=== PATIENT | female | born 1960 | race Caucasian/White ===

== ENCOUNTER → 2023-11-01 11:32 | Outpatient (REF) | payer OTHER, SELFPAY | LOC: RAD 11:32 | PROVIDERS: ATTENDING PHYSICIAN Nurse Practitioner | DX: J40 Bronchitis, not specified as acute or chronic (principal) | CPT/HCPCS: 71046 ==

== ENCOUNTER → 2024-01-05 12:53 | Outpatient (REF) | payer OTHER, SELFPAY | LOC: RCS 12:53 | PROVIDERS: ATTENDING PHYSICIAN Nurse Practitioner; REFERRING PHYSICIAN Internal Medicine Endocrinology, Diabetes & Metabolism | DX: R06.09 Other forms of dyspnea (principal); Z82.49 Family history of ischemic heart disease and other diseases of the circulatory system | CPT/HCPCS: 93017; 93306 ==

== ENCOUNTER → 2024-05-31 16:12 | Outpatient (REF) | payer OTHER, SELFPAY ==
[2024-05-31 12:11] LABS: % Eosinophils 7.6 % (0-6); % Immature Granulocytes 0.5 % (0-0.5); % Lymphocytes 31.9 % (20.5-51.1); % Monocytes 5.9 % (1.7-9.3); % Neutrophils 53.1 % (42.2-75.2); Absolute Basophils 0.1 10^3/uL (0-0.2); Absolute Eosinophils 0.5 10^3/uL (0-0.7); Absolute Lymphocytes 1.9 10^3/uL (1.2-3.4); Absolute Monocytes 0.4 10^3/uL (0.1-0.6); Absolute Neutrophils 3.2 10^3/uL (1.4-6.5); Hematocrit 41.5 % (37.0-47.0); Hemoglobin 13.5 g/dL (12.0-16.0); Mean Corp Hgb Conc. 32.5 g/dL (33.0-37.0); Mean Corpuscular Hgb 28.6 pg (27.0-31.0); Mean Corpuscular Volume 87.9 fL (81.0-99.0); Mean Platelet Volume 10.8 fL (7.4-10.4); Nucleated Red Blood Cells % 0 %; Platelet Count 245 10^3/uL (130-400); Red Blood Cell Count 4.72 10^6/uL (4.20-5.40); Red Cell Dist. Width 13.5 % (11.5-14.5); White Blood Cell Count 6.1 10^3/uL (4.8-10.8)
== END ==
LOC: OIDL 16:12
PROVIDERS: ATTENDING PHYSICIAN Internal Medicine Hematology & Oncology
DX: D50.9 Iron deficiency anemia, unspecified (principal)
CPT/HCPCS: 85025

== ENCOUNTER → 2024-10-01 11:05 | Outpatient (REF) | payer MEDICARE, OTHER, SELFPAY ==
[2024-10-01 12:18] LABS: % Basophils 0.7 % (0-2); % Eosinophils 8.5 % (0-6); % Immature Granulocytes 0.3 % (0-0.5); % Lymphocytes 20.3 % (20.5-51.1); % Monocytes 4.4 % (1.7-9.3); % Neutrophils 65.8 % (42.2-75.2); Absolute Basophils 0.1 10^3/uL (0-0.2); Absolute Eosinophils 0.7 10^3/uL (0-0.7); Absolute Lymphocytes 1.6 10^3/uL (1.2-3.4); Absolute Monocytes 0.3 10^3/uL (0.1-0.6); Absolute Neutrophils 5.1 10^3/uL (1.4-6.5); Hematocrit 41.3 % (37.0-47.0); Hemoglobin 13.2 g/dL (12.0-16.0); Mean Corpuscular Hgb 28.1 pg (27.0-31.0); Mean Corpuscular Volume 87.9 fL (81.0-99.0); Mean Platelet Volume 10.4 fL (7.4-10.4); Nucleated Red Blood Cells % 0 %; Platelet Count 232 10^3/uL (130-400); Red Cell Dist. Width 12.7 % (11.5-14.5); White Blood Cell Count 7.7 10^3/uL (4.8-10.8)
[2024-10-01 13:05] LABS: ALT (SGPT) 17 U/L (0-35); AST (SGOT) 24 U/L (14-36); Alkaline Phosphatase 114 U/L (38-126); Blood Urea Nitrogen 15 mg/dl (7-17); Calcium 9.2 mg/dl (8.4-10.2); Carbon Dioxide 26 mmol/L (22-30); Chloride 101 mmol/L (98-107); Glucose 179 mg/dl (70-99); Potassium 4.4 mmol/L (3.5-5.1); Sodium 136 mmol/L (135-145); Total Bilirubin 0.8 mg/dl (0.2-1.3); Total Protein 6.7 g/dl (6.3-8.2); eGFR > 60.00
[2024-10-01 13:32] LABS: TSH 5.16 uIU/ml (0.47-4.68)
[2024-10-04 00:32] LABS: Thyroglobulin Antibodies 4.9 IU/mL (0.0-4.0); Thyroid Peroxidase Ab (TPO) 2.8 IU/mL (0.0-9.0)
[2024-10-04 08:51] LABS: ANA, IgG Reflex to HEp-2 Detected (None Detected)
== END ==
LOC: REG 11:05
PROVIDERS: ATTENDING PHYSICIAN Pediatrics; FAMILY PHYSICIAN Hospitalist
DX: L50.1 Idiopathic urticaria (principal); R53.83 Other fatigue
CPT/HCPCS: 36415; 80053; 82784; 83516; 83520; 83521; 84155; 84165; 84443; 85025; 86038; 86225; 86235; 86334; 86376; 86800

== ENCOUNTER 2024-11-08 11:21 | Emergency (ER) | payer MEDICARE, OTHER, SELFPAY ==
[2024-11-08 11:22] VITALS: BP 161/97
--- NOTE | 2024-11-08 12:06 | ED.GENMED ---
History of Present Illness
General
Chief Complaint: Skin Problem
Source: patient
Exam Limitations: none
Time Seen by Provider: 11/08/24 11:30
History of Present Illness
History of Present Illness:
64yoF with a history of type 1 diabetes, pernicious anemia, and hypothyroidism presenting for evaluation of a rash. Symptoms initially began in April 2024 with a rash to her right lower leg. Her rash is now generalized throughout her body. The
rash is red and itchy and some areas are painful. She has seen multiple specialists including her PCP, dermatology, rheumatology, and an contact acid plant operator. She has tried multiple steroid creams as well as CeraVe a which seem to make the rash worse.
Dermatology biopsied one of her scabs and she was told that the biopsy showed 'itchy skin.' Patient feels that her symptoms are gradually getting worse and she is not sure what to do at this point. Her skin feels tight due to the rash. She denies
any fevers or chills. No involvement of mouth or genital region.
Past History
Past History
ED Past Medical History: IDDM
ED Past Surgical History: Appendectomy
Phy Exam
General Physical Exam
General Presentation: well appearing and no apparent distress
General age: appears stated age
General Skin: warm and dry
General Habitus: normal
General Mental: alert
ENT Exam
ENT Exam: normocephalic
Additional ENT: No mucosal lesions
Pulmonary Exam
Pulmonary Exam: no respiratory distress
Neurological Exam
Neurological Exam: alert
[place] Coma Scale
Eye Opening: Spontaneous
Verbal Response: Oriented
Motor Response: Obeys Commands
GCS Total Score: 15
Skin Exam
Skin Exam: warm/dry and other (Generalized erythematous rash with dry skin and excoriations. Blanches. No skin sloughing. No warmth or drainage. )
Psychiatric Exam
Psychiatric Exam: normal mood/affect
Course
Orders/Labs/Results
Orders:
Orders
11/08/24 12:41
Complete Blood Count/With Diff Urgent
Comprehensive Metabolic Panel Urgent
Abnormal Lab Results
11/08/24
12:41
MCHC 32.1 L g/dL
(33.0-37.0)
Absolute Eos (auto) 0.8 H 10^3/uL
(0-0.7)
Lymphocytes % 17.9 L %
(20.5-51.1)
Eosinophils % 11.3 H %
(0-6)
Glucose 273 H mg/dl
(70-99)
Total Protein 6.0 L g/dl
(6.3-8.2)
11/08/24 12:41
11/08/24 12:41
Vital Signs
Initial and Last Documented VS:
Initial Vital Signs
Temp Pulse Resp BP Pulse Ox
98.0 F 93 16 161/97 98
11/08/24 11:22 11/08/24 11:22 11/08/24 11:22 11/08/24 11:22 11/08/24 11:22
Last Documented Vital Signs
Temp Pulse Resp BP Pulse Ox
98.0 F 79 18 137/65 100
11/08/24 11:22 11/08/24 14:22 11/08/24 14:22 11/08/24 14:22 11/08/24 14:22
MDM/Problems Addressed
Differential Diagnosis Includes:
64yoF here with a rash since April 2024. Gradually worsening. Itching, some areas are painful. Has seen numerous specialist including dermatology, contact acid plant operator, and rheumatology without a definitive diagnosis. No oropharyngeal or genital involvement.
No f/c or systemic symptoms. She is mildly hypertensive with otherwise stable vital signs. She is well appearing in no distress. There is a generalized red excoriated rash on exam. No skin sloughing, signs of cellulitis, or involvement of oral
mucosa.
Initial ED plan: Check CBC and CMP.
*Critical Care Note
Total Time (30-74mins, 75-104mins- exclusive of procedures): Not Applicable
Update Note
Update Note:
White count WNL. Glucose 273. Remainder of labs are normal including normal electrolytes, renal function, and LFTs. Will trial course of prednisone. Discussed risks vs. benefits of this given history of T1DM and patient in agreement. She was
advised to monitor her blood sugars very closely while on the steroids. She was advised to f/u with her PCP and dermatology. ED return precautions discussed. Patient discharged in stable condition.
ED Attending Note
-
Portions of this chart may have been created with voice recognition software.� Occasional wrong word or��sound alike� substitutions may have occurred due to the inherent limitations of voice recognition software.
Discharge Plan
Departure
Patient Disposition: Home (Routine Discharge)
Date of Disposition: 11/08/24
Time of Disposition: 13:37
Patient with high blood pressure during this ER visit?: Yes
Discharge Problem:
Rash and nonspecific skin eruption
Instructions: Skin Rash (DC)
Prescriptions:
New
prednisone 20 mg tablet
40 mg PO DAILY 5 Days Qty: 10 0RF
No Action
ondansetron 4 MG tablet,disintegrating
4 mg PO TIDPRN PRN (Reason: nausea/vomiting) Qty: 10 0RF
Referrals:
Richard Winter MD [Family Provider] -
Clark Mirza MD [Consulting Staff] -
Activity Restrictions/Additional Instructions:
Take prednisone as prescribed. Monitor your blood sugars closely while taking the steroids.
Please follow-up with dermatology and your family doctor. Return to the ER with any new or worsening symptoms.
Interventions
Interventions:
*Risk Screen - Suicide Last Done: 11/08/24 11:22
*General Assessment Last Done: 11/08/24 12:31
*Neglect/Abuse Screening Last Done: 11/08/24 11:22
ED- Fall Risk Assessment Last Done: 11/08/24 12:31
*ED COVID-19 Vaccine History Last Done: 11/08/24 12:31
*Nursing Disposition Last Done: 11/08/24 14:23
ED-Skin Assessment Last Done: 11/08/24 12:31
Discharge Date and Time
Discharge Date/Time: 11/08/24 14:23
Print Language: LEBANESE
[2024-11-08 12:53] LABS: % Basophils 0.7 % (0-2); % Eosinophils 11.3 % (0-6); % Immature Granulocytes 0.3 % (0-0.5); % Lymphocytes 17.9 % (20.5-51.1); % Monocytes 5.9 % (1.7-9.3); % Neutrophils 63.9 % (42.2-75.2); Absolute Basophils 0.1 10^3/uL (0-0.2); Absolute Eosinophils 0.8 10^3/uL (0-0.7); Absolute Lymphocytes 1.3 10^3/uL (1.2-3.4); Absolute Monocytes 0.4 10^3/uL (0.1-0.6); Absolute Neutrophils 4.7 10^3/uL (1.4-6.5); Hematocrit 38.6 % (37.0-47.0); Hemoglobin 12.4 g/dL (12.0-16.0); Mean Corp Hgb Conc. 32.1 g/dL (33.0-37.0); Mean Corpuscular Hgb 28.1 pg (27.0-31.0); Mean Corpuscular Volume 87.5 fL (81.0-99.0); Mean Platelet Volume 10.3 fL (7.4-10.4); Nucleated Red Blood Cells % 0 %; Platelet Count 230 10^3/uL (130-400); Red Blood Cell Count 4.41 10^6/uL (4.20-5.40); Red Cell Dist. Width 13.1 % (11.5-14.5); White Blood Cell Count 7.3 10^3/uL (4.8-10.8)
[2024-11-08 13:14] LABS: ALT (SGPT) 21 U/L (0-35); AST (SGOT) 32 U/L (14-36); Albumin 3.5 g/dl (3.5-5.0); Alkaline Phosphatase 91 U/L (38-126); Blood Urea Nitrogen 9 mg/dl (7-17); Calcium 9.3 mg/dl (8.4-10.2); Carbon Dioxide 29 mmol/L (22-30); Chloride 105 mmol/L (98-107); Glucose 273 mg/dl (70-99); Potassium 4.2 mmol/L (3.5-5.1); Sodium 138 mmol/L (135-145); Total Bilirubin 0.6 mg/dl (0.2-1.3); eGFR > 60.00
[2024-11-08 14:22] VITALS: BP 137/65
== END 2024-11-08 14:23 | disposition home or self-care (01) ==
LOC: EMR 11:21
PROVIDERS: Physician Assistant; EMERGENCY PHYSICIAN Emergency Medicine; FAMILY PHYSICIAN Internal Medicine
DX: R21 Rash and other nonspecific skin eruption (principal); E03.9 Hypothyroidism, unspecified; E10.9 Type 1 diabetes mellitus without complications; Z90.49 Acquired absence of other specified parts of digestive tract
CPT/HCPCS: 99283; 80053; 85025

== ENCOUNTER 2024-11-19 19:24 | Inpatient (IN) | payer MEDICARE, OTHER, SELFPAY ==
--- NOTE | 2024-11-19 13:58 | ED.GENMED ---
History of Present Illness
General
Chief Complaint: Numbness
Time Seen by Provider: 11/19/24 13:58
History of Present Illness
History of Present Illness:
TIME OF INITIAL ENCOUNTER: 2:05 PM
HPI: Patient came in from home by ambulance. The patient presents with paresthesias/numbness b/l. She later developed has R sided weakness. This caused her to fall yesterday and struck R elbow. She could not get into see a neurologist until this
coming January. She does have a history of diabetes. She was diagnosed with parvovirus yesterday. She had been having a rash as well onset Apr 2024. She was seen here with a rash just under 2 weeks ago. She reportedly had a biopsy by dermatology
and was told it was 'itchy skin'.
EXAM:
GENERAL: Well appearing in no distress
HEENT: Moist oral mucosa
CARDIOVASCULAR: No murmurs, normal heart rate, regular rhythm, No chest wall tenderness
PULMONARY: No respiratory distress, breath sounds are clear and equal
ABDOMEN: Soft with no peritoneal signs, no tenderness
NEUROLOGIC: Normal strength LUE/LLE; RLE strength against gravity; decreased diesel retrofit designer strength RUE
PSYCHIATRIC: Appropriate mental status, normal insight and judgement
EXTREMITIES: Nontender, no edema, markedly decreased range of motion related to decree strength
SKIN: No rash, no lesions
NUMBER AND COMPLEXITY OF PROBLEMS ADDRESSED AT THE ENCOUNTER
� Chronic conditions affecting care: IDDM on pump, pernicious anemia
� Acute Exacerbation and/or Progression of Chronic Illness:
� Differential Diagnosis includes:
AMOUNT AND/OR COMPLEXITY OF DATA TO BE REVIEWED AND ANALYZED
� I performed an independent evaluation of and my interpretation is:
EKG:
CT: Brain CT shows no acute abnormality
X-rays:
Laboratory Studies: White count 12.9, hemoglobin normal, glucose 353, CRP 7, B12 41, TSH normal
Other:
� Review of other/old records: I reviewed notes when patient was here earlier this month regarding the rash.
� Clinical information was obtained by an independent historian: I spoke to EMS for history upon arrival
� Prescriptions/Medications Considered but not given:
� Further testing considered but not performed:
RISK OF COMPLICATIONS AND/OR MORBIDITY OR MORTALITY OF PATIENT MANAGEMENT
� Social determinants of health affecting care: Lives at home
� Discussion with other providers: Dr. Avila, neurology evaluated patient and recommends patient stay in the hospital. Hospitalist, Dr. Singer for admission.
� Escalation of care including admission/observation vs risk of discharge considered: Dr. Avila is ordering MRI of the C and T-spine.
ANY OTHER UPDATES:
Past History
Past History
ED Past Medical History: IDDM
ED Past Surgical History: Appendectomy
Phy Exam
Physical Exam
Physical Exam:
See HPI
Course
Orders/Labs/Results
Orders:
Orders
11/19/24 14:00
CT Head W/o Iv Contrast Urgent
Comment:
Reason For Exam: R paresthesias
11/19/24 14:05
B12 [Vitamin B12] Urgent
CRP [C-Reactive Protein] Urgent
Complete Blood Count/With Diff Urgent
Comprehensive Metabolic Panel Urgent
TSH Reflex To Free T4 Urgent
11/19/24 14:10
0.9% Sodium Chloride 1000 ml [Nss] 1,000 ml IV BOLUS
11/19/24 17:54
MR Cervical Spine Without & W Routine
Comment:
Reason For Exam: ~T1 sensory level, crossed signs
Recent pill cam endoscopy?: No
11/19/24 17:55
MR Thoracic Spine W/o & With Routine
Comment:
Reason For Exam: ~T1 sensory level, crossed signs
Recent pill cam endoscopy?: No
11/19/24 18:10
Add On- LAB Stat
Tests Added?: b12,folate
Abnormal Lab Results
11/19/24
14:05
WBC 12.9 H 10^3/uL
(4.8-10.8)
MCHC 32.3 L g/dL
(33.0-37.0)
Abs Immat Gran (auto) 0.1 H 10^3/uL
(0-0.05)
Absolute Neuts (auto) 12.0 H 10^3/uL
(1.4-6.5)
Absolute Lymphs (auto) 0.6 L 10^3/uL
(1.2-3.4)
Neutrophils % 93.0 H %
(42.2-75.2)
Lymphocytes % 4.9 L %
(20.5-51.1)
Monocytes % 1.3 L %
(1.7-9.3)
Potassium 5.2 H mmol/L
(3.5-5.1)
Glucose 353 H mg/dl
(70-99)
Alkaline Phosphatase 131 H U/L
(38-126)
11/19/24 14:05
11/19/24 14:05
Vital Signs
Initial and Last Documented VS:
Initial Vital Signs
Temp Pulse Resp BP Pulse Ox
36.8 C 113 15 160/73 98
11/19/24 13:59 11/19/24 13:59 11/19/24 13:59 11/19/24 13:59 11/19/24 13:59
Last Documented Vital Signs
Temp Pulse Resp BP Pulse Ox
36.8 C 113 15 160/73 98
11/19/24 13:59 11/19/24 13:59 11/19/24 13:59 11/19/24 13:59 11/19/24 13:59
*Critical Care Note
Total Time (30-74mins, 75-104mins- exclusive of procedures): Not Applicable
ED Attending Note
-
Portions of this chart may have been created with voice recognition software.� Occasional wrong word or��sound alike� substitutions may have occurred due to the inherent limitations of voice recognition software.
Discharge Plan
Departure
Patient Disposition: Admit
Date of Disposition: 11/19/24
Time of Disposition: 18:05
Presentation/result/management discussed w/ accepting MD/DO: Hospitalist
Discharge Problem:
Weakness
Prescriptions:
No Action
levothyroxine [Synthroid] 137 mcg Tablet
137 mcg PO DAILY
fluticasone propion-salmeterol [Advair Diskus] 250-50 mcg/dose Blister With Device
1 inh INHALATION R BID
enalapril maleate 10 mg Tablet
10 mg PO DAILY
cyanocobalamin (vitamin B-12) 1,000 mcg/mL Solution
1,000 mcg IM Q2W
loratadine [Claritin] 10 mg Tablet
10 mg PO HS
Patient Own Insulin Pump
0 unit SC .VIA HUMOLOG
prednisone 20 mg tablet
40 mg PO .TAPER
Rx Instructions:
take 60mg daily for 3 days then 40mg daily for 3 days then 20mg daily for 3 days
Referrals:
Milagros Haynes CRNP [Family Provider] -
Interventions
Interventions:
*General Assessment Last Done: 11/19/24 13:59
*ED- Fall Risk Assessment Last Done: 11/19/24 13:59
ED- Neurological Assessment Last Done: 11/19/24 14:17
Discharge Date and Time
Print Language: FINNISH
[2024-11-19 13:59] VITALS: BP 160/73; BMI 35.3
[2024-11-19 14:01] VITALS: BP 160/73
[2024-11-19 14:23] LABS: % Basophils 0.2 % (0-2); % Eosinophils 0.1 % (0-6); % Immature Granulocytes 0.5 % (0-0.5); % Lymphocytes 4.9 % (20.5-51.1); % Monocytes 1.3 % (1.7-9.3); Absolute Immature Granulocytes 0.1 10^3/uL (0-0.05); Absolute Lymphocytes 0.6 10^3/uL (1.2-3.4); Absolute Monocytes 0.2 10^3/uL (0.1-0.6); Hematocrit 45.8 % (37.0-47.0); Hemoglobin 14.8 g/dL (12.0-16.0); Mean Corp Hgb Conc. 32.3 g/dL (33.0-37.0); Mean Corpuscular Hgb 28.1 pg (27.0-31.0); Mean Corpuscular Volume 87.1 fL (81.0-99.0); Mean Platelet Volume 9.8 fL (7.4-10.4); Nucleated Red Blood Cells % 0 %; Platelet Count 293 10^3/uL (130-400); Red Blood Cell Count 5.26 10^6/uL (4.20-5.40); Red Cell Dist. Width 13.6 % (11.5-14.5); White Blood Cell Count 12.9 10^3/uL (4.8-10.8)
[2024-11-19] MEDS: NSS 1000 IV (14:30)
[2024-11-19 14:48] LABS: ALT (SGPT) 24 U/L (0-35); AST (SGOT) 26 U/L (14-36); Albumin 4.9 g/dl (3.5-5.0); Alkaline Phosphatase 131 U/L (38-126); Blood Urea Nitrogen 14 mg/dl (7-17); Calcium 9.4 mg/dl (8.4-10.2); Carbon Dioxide 24 mmol/L (22-30); Chloride 99 mmol/L (98-107); Estimated Creatinine Clearance 76 ml/min; Glucose 353 mg/dl (70-99); Potassium 5.2 mmol/L (3.5-5.1); Sodium 136 mmol/L (135-145); Total Bilirubin 1.3 mg/dl (0.2-1.3); Total Protein 7.6 g/dl (6.3-8.2); eGFR > 60.00
[2024-11-19 15:26] LABS: Vitamin B12 481 pg/ml (239-931)
--- NOTE | 2024-11-19 18:04 | HPS.HSE ---
Family Physician
-
Family Physician: TERESA Kapoor
Chief Complaint
-
rash
numbness, tinging
History of Present Illness
64-year-old with past medical history for hypertension, hypothyroidism, type 1 diabetes, pernicious anemia presents with Generalized rash since April. She started off itching on her foot, which progressed to her body, lower extremities. Patient
was evaluated by senior economist and manager transfer with no acute interventions as an outpatient. Patient noticed tingling in her extremities in July. The tingling, numbness progressively got worse. Recently she was noted to have right-sided
weakness and now she is noting left-sided weakness. She is off balance and trouble walking now. she was not able to get a neurology appointment until 3 months. Yesterday she also had a fall due to the weakness. She was evaluated in the ER on
November 08, she was prescribed steroids which helped her with itching but her Tylenol but numbness got worse. Her prednisone was increased by her PCP on Friday patient denied any. Headache, dizzy or syncope. Patient denied any congestion, cough.
Patient denied any chest pain or short of breath. Patient denied any abdominal pain, nausea, vomiting or diarrhea. Patient denied dysuria,hematuria.
. Patient was evaluated by neurology. Ordered MRI of cervical and thoracic spine.Admitting for further management
Medical History
Past Medical History
Past Medical History: Reports Other
Additional Past Medical History:
Asthma
COVID
Pernicious anemia
Deficiency anemia
Hypertension
Hypothyroidism
Diabetes type 1
Kidney stones
Shingles
Arthritis
Past Surgical History: Reports Other
Additional Past Surgical History:
R yes
Appendectomy
DNC
History of gastric adenoma
Social History
Tobacco: Non-smoker
Alcohol: Occasional
Drug: None
Personal:
Living: With Family
Family History
Family History: Not pertinent
Allergies / Home Medications
Allergies reflects when Allergies were last updated in [facility].
Home Medications with original date entered in [facility]
Allergy/Medication List:
Allergies
Allergy/AdvReac Type Severity Reaction Status Date / Time
tetracycline Allergy Rash Verified 11/08/24 11:24
Home Medications
Patient Own Insulin Pump 0 unit SC .VIA HUMOLOG 11/19/24
cyanocobalamin (vitamin B-12) 1,000 mcg/mL injection solution 1,000 mcg IM Q2W 11/19/24
enalapril maleate 10 mg tablet 10 mg PO DAILY 11/19/24
fluticasone 250 mcg-salmeterol 50 mcg/dose blistr powdr for inhalation (Advair Diskus) 1 inh inhalation R BID 11/19/24
levothyroxine 137 mcg tablet (Synthroid) 137 mcg PO DAILY 11/19/24
loratadine 10 mg tablet (Claritin) 10 mg PO HS 11/19/24
prednisone 20 mg tablet 40 mg PO .TAPER 11/19/24
Review of Systems
-
Constitutional: Reports No Symptoms
EENT: Reports No Symptoms
Respiratory: Reports No Symptoms
Cardiac: Reports No Symptoms
Abdomen/GI: Reports No Symptoms
: Reports No Symptoms
Musculoskeletal: Reports No Symptoms
Skin: Reports Rash
Neurological: Reports Weakness and Numbness
Endocrine: Reports No Symptoms
Hematologic/Lymphatic: Reports No Symptoms
Psych: Reports No Symptoms
Physical Exam
Vital Signs
Vital Signs
Temp Pulse Resp BP Pulse Ox
98.2 F 113 15 160/73 98
11/19/24 13:59 11/19/24 13:59 11/19/24 13:59 11/19/24 13:59 11/19/24 13:59
Physical Exam
General: Well Developed, Well Nourished and No Apparent Distress
HEENT: NormoCephalic, Moist mucous membranes and Atraumatic
Respiratory: Clear
Cardiac: S1/S2 and Regular Rhythm; No Murmur or Rub
GI: Soft, Non Tender, Non Distended and Normal Bowel Sounds; No Organomegaly
Rectal: Deferred by Provider
Musculoskeletal: No Clubbing, No Cyanosis and No Edema
Skin: Rash
Neuro: AO x 3 and Nonfocal/grossly intact
Psych: Calm
Laboratory Results
-
11/19/24 14:05
11/19/24 14:05
Laboratory Results
Total Bilirubin 1.3 mg/dl (0.2-1.3) 11/19/24 14:05
AST 26 U/L (14-36) 11/19/24 14:05
ALT 24 U/L (0-35) 11/19/24 14:05
Alkaline Phosphatase 131 U/L (38-126) H 11/19/24 14:05
Data Reviewed
-
Lab Data: Labs Reviewed by me
Impression/Plan
-
#rash/paresthesias and weakness unclear cause
-Head CT with impression no acute intracranial abnormality.Mild to moderate microvascular ischemic disease. Probable old lacunar infarcts within the basal ganglia bilaterally.
-Obtain MRI of cervical and thoracic spine
-Add B12/folate
-PT/OT consulted
-Neurology consulted
-prednisone continued
-Atarax continued for itching
#pernicious anemia
#patient is on B12 injection as outpatient.
#Leukocytosis likely from steroids
-Patient is afebrile
-Continue to monitor
#type 1 DM
#Hyperglycemia likely from steroids
-insulin Pump continued
-DM NAIL FEEDER consulted
# Hypertension
-Enalapril continued with hold parameter
# Hypothyroidism
-Levothyroxine continued
# DVT prophylaxis
-heparin
# CODE STATUS
-Full code
--- NOTE | 2024-11-19 18:28 | W.PN.UPDATE ---
Update Note
Progress Note Update
I saw and examined the patient.
The DIRECTOR OF FRONT OFFICE or PA's note was reviewed and I agree with the note.
Comment:
This note serves as an addendum to the H&P by interviewing clerk BUNNY
Fabiana ALDANA
64F IDDM on pump, Pernicous anemia on Biweekly IM B12, Hypothyroid on LT4 with ongoing rash for last 7 months.then developed paresthesias then weakness.
Severe weakness attributed to fell yesterday. She cannot get OP MRI or neuro OP appointment until January.
Currently reports FTT due general disability, ambulatory dysfunction led to unable care for herself.
PHX significant pernicious anemia. Pending B12 pending.
Positive for parvovirus yesterday.
She was Was given steroids 11/08/2024 due to the ongoing rash, which helped the itch, but now weakness continues to worsen.
ASSESSMENT & PLAN
Severe progressive weakness complicated by Fall, associated FTT due general disability, ambulatory dysfunction for 4 months
Reports unable care for herself.
DDX: Upper motor neurone issues like Cervical or thoracic inflammatory myelopathy, subacute combined degeneration of cord( SCDC) peripheral neuropathy ( diabetic vs B12 or Folate)
Positive for parvovirus yesterday.
She was given steroids 11/08/2024 due to the ongoing rash, which helped the itch, but now weakness continues to worsen.
Idiopathic pruritic rash more in distal
- Pending inpatient MRI for Cervical and Thoracic spine.
- Pending B12 pending.
- PT consult
- Neuro consulted at ER
PHX significant pernicious anemia
DDX: SCDC if B12 is replaced without Folate supplement
- check B12 and Folate
- on IM B12 biweekly
- Heme consult
IDDM on pump
- cont. pump
- DM DIRECTOR OF FRONT OFFICE consult
Idiopathic peripheral pruritic rash for months
She F/U with OP pharmaceutical worker
- c/w OP
- added PRN Atarax
DVT Px: LMWH
Full code
IP MS
--- NOTE | 2024-11-19 20:40 | CON.NEURO ---
Neuro Assessment/Plan
Assessment
4 months progressive weakness/numbness
with this exam of crossed signs, sensory level, suspecting cervical/upper thoracic myelopathy/myelitis
would favor viral/autoimmune etiology over compressive
Plan
MRI cervical and thoracic spine
Consultation
Order
Date of Consultation: 11/19/24
Requesting Provider: Homero Matthew
Reason for Consult: progressive weakness/numbness
Subjective/Objective
Subjective Data
Date of Service: November 19, 2024
She is a 64 year old woman presenting after a fall. 4 months of progressive numbness/tingling beginning in upper extremities progressing. later developed progressive weakness, worse on the right side. no bowel/bladder symptoms. rash x9 months,
biopsy negative
Objective Data
Vital Signs
Temp Pulse Resp BP Pulse Ox
36.8 C 104 17 160/73 96
11/19/24 13:59 11/19/24 17:00 11/19/24 17:00 11/19/24 14:01 11/19/24 14:45
Lab Results
11/19/24 14:05
11/19/24 14:05
Sodium 136 mmol/L (135-145) 11/19/24 14:05
Potassium 5.2 mmol/L (3.5-5.1) H 11/19/24 14:05
BUN 14 mg/dl (7-17) 11/19/24 14:05
Glucose 353 mg/dl (70-99) H 11/19/24 14:05
Calcium 9.4 mg/dl (8.4-10.2) 11/19/24 14:05
Vitamin B12 481 pg/ml (239-931) 11/19/24 14:05
Patient Allergies
tetracycline Allergy (Verified 11/08/24 11:24)
Rash
Physical Exam
-
AAOx4, speech clear
face symmetric, VFF, EOMI
RUE/LE 4/5, LUE/LE 5/5
decreased vibration severe b/l LE, R>L UE
decreased temperature LUE/LE
Decreased pin sensory level ~T2 level bilaterally.
DTR 1+ UE, 2+right knee, 3+ left knee
Medications
-
Home Medications
�Medication �Instructions �Recorded
Patient Own Insulin Pump 0 unit SC .VIA HUMOLOG 11/19/24
cyanocobalamin (vitamin B-12) 1,000 mcg IM Q2W 11/19/24
1,000 mcg/mL injection solution
enalapril maleate 10 mg tablet 10 mg PO DAILY 11/19/24
fluticasone 250 mcg-salmeterol 50 1 inh inhalation R BID 11/19/24
mcg/dose blistr powdr for
inhalation (Advair Diskus)
levothyroxine 137 mcg tablet 137 mcg PO DAILY 11/19/24
(Synthroid)
loratadine 10 mg tablet (Claritin) 10 mg PO HS 11/19/24
prednisone 20 mg tablet 40 mg PO .TAPER 11/19/24
[2024-11-19 21:32] LABS: Glucose - Point of Care 183 mg/dl (70-99)
[2024-11-19 21:40] LABS: Folate 6.9 ng/ml (2.76-20)
[2024-11-19 21:42] VITALS: BP 142/71
[2024-11-19 21:56] VITALS: BMI 34.2
[2024-11-19] MEDS: HEPARIN 5000 UNITS SC (22:44)
--- NOTE | 2024-11-19 22:45 | PTCARENOTE ---
Pt arrived to room 435-02. Pt ambulated from stretcher to bed with r/w x1 assist. Pt AAOx3, VSS. Pt oriented to room, call owen placed within reach- educated on need to use call owen with assistance OOB.
[2024-11-19] MEDS: PT'S OWN INSULIN PUMP - HumaLOG 3.2 UNIT SC (22:47)
[2024-11-19] MEDS: ADVAIR HFA 115/21 MCG INHALER 2 PUFF INH (23:43)
--- NOTE | 2024-11-20 03:00 | PTCARENOTE ---
RN reached out to SOFT SUGAR SUPERVISOR and occupational therapy supervisor in regards to pt isolation needs for (+) parvovirus result 11/18. Advised it was okay to leave pt on standard precautions in semi- private room. No further orders.
[2024-11-20 06:08] LABS: Hematocrit 40.3 % (37.0-47.0); Hemoglobin 12.8 g/dL (12.0-16.0); Mean Corp Hgb Conc. 31.8 g/dL (33.0-37.0); Mean Corpuscular Hgb 27.9 pg (27.0-31.0); Mean Platelet Volume 10.1 fL (7.4-10.4); Platelet Count 254 10^3/uL (130-400); Red Blood Cell Count 4.58 10^6/uL (4.20-5.40); Red Cell Dist. Width 13.6 % (11.5-14.5); White Blood Cell Count 11.5 10^3/uL (4.8-10.8)
[2024-11-20] MEDS: SYNTHROID 137 MCG PO (06:23)
[2024-11-20 06:34] LABS: Blood Urea Nitrogen 15 mg/dl (7-17); Carbon Dioxide 27 mmol/L (22-30); Chloride 103 mmol/L (98-107); Estimated Creatinine Clearance 74 ml/min; Glucose 95 mg/dl (70-99); Potassium 4.1 mmol/L (3.5-5.1); Sodium 139 mmol/L (135-145); eGFR > 60.00
[2024-11-20 07:30] VITALS: BP 148/75
[2024-11-20 07:58] LABS: Glucose - Point of Care 47 mg/dl (70-99)
[2024-11-20 08:23] LABS: Glucose - Point of Care 61 mg/dl (70-99)
[2024-11-20] MEDS: ADVAIR HFA 115/21 MCG INHALER 2 PUFF INH ×2 (08:53→19:54)
[2024-11-20 09:01] LABS: Glucose - Point of Care 137 mg/dl (70-99)
[2024-11-20] MEDS: DELTASONE 60 MG PO (09:19)
[2024-11-20] MEDS: VASOTEC 10 MG PO (09:20)
[2024-11-20] MEDS: HEPARIN 5000 UNITS SC ×2 (09:21→21:13)
[2024-11-20 09:26] LABS: Glycohemoglobin (HgbA1c) 7.9 % (4.0-5.6)
--- NOTE | 2024-11-20 09:58 | CM ---
CM met with pt at bedside.
Pt presents from home where she resides with spouse and 2 cats. 2SH with FF to second floor-bedroom and bathroom, there is a powder room on first floor. 2 TRACY home through garage.
+ Data Manager however lately does most driving.
Ind with RW for amb. Ind with adl's.
Confirmed PCP is Milagros Haynes and pharmacy is [facility] on [address]
PT evals pending. Dispo pending progress. Anticipate home with VN vs SNF recc.
CM to follow and assist.
[2024-11-20] MEDS: PT'S OWN INSULIN PUMP - HumaLOG 3.6 UNIT SC (10:00)
[2024-11-20 11:50] LABS: Glucose - Point of Care 205 mg/dl (70-99)
[2024-11-20 12:14] VITALS: BP 171/78; PULSE 90
--- NOTE | 2024-11-20 12:22 | W.PN.HOSP.TC ---
Today's Communication/Plan
-
mri pending
monitor neuro check
monitor poc
Assessment / Plan
Assessment / Plan
General: Well Developed, Well Nourished and No Apparent Distress
HEENT: NormoCephalic, Moist mucous membranes and Atraumatic
Respiratory: Clear
Cardiac: S1/S2 and Regular Rhythm; No Murmur or Rub
GI: Soft, Non Tender, Non Distended and Normal Bowel Sounds; No Organomegaly
Rectal: Deferred by Provider
Musculoskeletal: No Clubbing, No Cyanosis and No Edema
Skin: Rash bilateral forearms and legs maculopapular erythematous.
Neuro: AO x 3 and Nonfocal/grossly intact, sensation intact. Extraocular muscles intact. No facial droop. No slurred speech.
Psych: Calm
#Severe progressive weakness complicated by Fall, associated FTT due general disability, ambulatory dysfunction for 4 months
#Neuropathy versus demyelination disease versus transverse myelitis versus spinal cord compression
#Generalized rash-improving
# Recent outpatient parvovirus infection
-Head CT with impression no acute intracranial abnormality.Mild to moderate microvascular ischemic disease. Probable old lacunar infarcts within the basal ganglia bilaterally.
-Obtain MRI of cervical and thoracic spine
-PT/OT consulted
-Neurology consulted
-prednisone continued on taper regimen-currently onb 40mg
-Atarax continued for itching
-B12 low normal. Folate normal.
-If MRI inconclusive may need to consider LP.
#Idiopathic peripheral pruritic rash for months
# F/U with OP liner inserter
- c/w OP. rash is improving.
- added PRN Atarax
#pernicious anemia
#patient is on B12 injection as outpatient.
Continue with supplementation
#Leukocytosis likely from steroids
-Patient is afebrile
-Continue to monitor
#type 1 DM
#Hyperglycemia likely from steroids
-insulin Pump continued
-Episode of hypoglycemia resolved with p.o. intake.
# Hypertension
-Enalapril continued with hold parameter
# Hypothyroidism
-Levothyroxine continued
# DVT prophylaxis
-heparin
# CODE STATUS
-Full code
Anticipated Discharge: > 48 hours
Subjective/Interval History
-
Date of Service: November 20, 2024
States of improvement in leg and hand rash with steroids
States of decreased sensation/weakness in bilateral hands and legs
Denies any neck pain or back pain. Denies any headache. Denies any vision problems. Denies any urinary or fecal incontinence.
Objective Data
-
Labs:
Laboratory Results
11/20/24
04:49
WBC 11.5 H
Hgb 12.8
Hct 40.3
Plt Count 254
Sodium 139
Potassium 4.1
Chloride 103
Carbon Dioxide 27
BUN 15
Creatinine 0.8
Glucose 95
Calcium 9.0
Vital Signs:
Vital Signs
Temp Pulse Resp BP Pulse Ox
98.1 F 80 16 148/75 98
11/20/24 07:30 11/20/24 09:20 11/20/24 08:58 11/20/24 09:20 11/20/24 08:58
[2024-11-20 12:35] VITALS: BP 171/78; PULSE 90
[2024-11-20] MEDS: PT'S OWN INSULIN PUMP - HumaLOG 2.5 UNIT SC (13:00)
[2024-11-20 15:31] VITALS: BP 150/71
[2024-11-20 16:48] LABS: Glucose - Point of Care 378 mg/dl (70-99)
[2024-11-20] MEDS: PT'S OWN INSULIN PUMP - HumaLOG 8 UNIT SC (17:55)
[2024-11-20 20:03] LABS: Glucose - Point of Care 321 mg/dl (70-99)
[2024-11-20 22:01] LABS: Glucose - Point of Care 313 mg/dl (70-99)
[2024-11-20] MEDS: PT'S OWN INSULIN PUMP - HumaLOG 3.3 UNIT SC (22:01)
[2024-11-20 23:00] VITALS: BP 131/59
[2024-11-21 02:35] LABS: Glucose - Point of Care 178 mg/dl (70-99)
[2024-11-21] MEDS: SYNTHROID 137 MCG PO (06:11)
[2024-11-21 06:19] LABS: Glucose - Point of Care 167 mg/dl (70-99)
[2024-11-21] MEDS: ADVAIR HFA 115/21 MCG INHALER 2 PUFF INH ×2 (07:13→20:31)
[2024-11-21 07:15] LABS: Hematocrit 38.9 % (37.0-47.0); Hemoglobin 12.6 g/dL (12.0-16.0); Mean Corp Hgb Conc. 32.4 g/dL (33.0-37.0); Mean Corpuscular Hgb 28.2 pg (27.0-31.0); Mean Platelet Volume 10.4 fL (7.4-10.4); Platelet Count 240 10^3/uL (130-400); Red Blood Cell Count 4.47 10^6/uL (4.20-5.40); Red Cell Dist. Width 13.5 % (11.5-14.5); White Blood Cell Count 11.8 10^3/uL (4.8-10.8)
[2024-11-21 07:33] VITALS: BP 158/71
[2024-11-21 07:40] LABS: Blood Urea Nitrogen 15 mg/dl (7-17); Carbon Dioxide 27 mmol/L (22-30); Chloride 102 mmol/L (98-107); Estimated Creatinine Clearance 84 ml/min; Glucose 173 mg/dl (70-99); Sodium 137 mmol/L (135-145); eGFR > 60.00
[2024-11-21 07:46] LABS: Glucose - Point of Care 158 mg/dl (70-99)
--- NOTE | 2024-11-21 08:32 | W.PN.HOSP.TC ---
Today's Communication/Plan
-
Check ESR CRP CK ACH receptor antibody
Await MRI
Await neurology
Rehab evaluation
Remains on steroids
Assessment / Plan
Assessment / Plan
General: Well Developed, Well Nourished and No Apparent Distress
HEENT: NormoCephalic, Moist mucous membranes and Atraumatic
Respiratory: Clear
Cardiac: S1/S2 and Regular Rhythm; No Murmur or Rub
GI: Soft, Non Tender, Non Distended and Normal Bowel Sounds; No Organomegaly
Rectal: Deferred by Provider
Musculoskeletal: No Clubbing, No Cyanosis and No Edema
Skin: Rash bilateral forearms and legs maculopapular erythematous.
Neuro: AO x 3 and Nonfocal/grossly intact, sensation intact. Extraocular muscles intact. No facial droop. No slurred speech.
Psych: Calm
#Severe progressive weakness complicated by Fall, associated FTT due general disability, ambulatory dysfunction for 4 months
#Neuropathy versus demyelination disease versus transverse myelitis versus spinal cord compression
#Generalized rash-improving
# Recent outpatient parvovirus infection
--No dysphagia, dysarthria, dysphonia, facial weakness, ptosis or diplopia. No bulbar symptoms.
-Head CT with impression no acute intracranial abnormality.Mild to moderate microvascular ischemic disease. Probable old lacunar infarcts within the basal ganglia bilaterally.
-Obtain MRI of cervical and thoracic spine
-PT/OT consulted
-prednisone continued on taper regimen-currently on 40mg
-Atarax continued for itching
-B12 low normal. Folate normal.
-Check ESR, CRP and CK level. Check acetylcholine antibody receptor
-tsh wnl
-If MRI inconclusive may need to consider LP.
-Await further neurology input
#Idiopathic peripheral pruritic rash for months
# F/U with [employer] specialist
- Rash is improving.
- added PRN Atarax
#pernicious anemia
#patient is on B12 injection as outpatient.
Continue with supplementation
#Leukocytosis likely from steroids
-Patient is afebrile
-Continue to monitor
#type 1 DM
#Hyperglycemia likely from steroids
-insulin Pump continued
-Episode of hypoglycemia resolved with p.o. intake.
# Hypertension
-Enalapril continued with hold parameter
# Hypothyroidism
-Levothyroxine continued
# DVT prophylaxis
-heparin
# CODE STATUS
-Full code
Anticipated Discharge: > 48 hours
Subjective/Interval History
-
Date of Service: November 21, 2024
this morning states of increase weakness in forearm and legs
Remains with great sense of humor
Denies any headache or neck pain
Able to lift and hold water For few seconds. States usually holding things with bilateral hands.
Objective Data
-
Labs:
Laboratory Results
11/21/24
05:59
WBC 11.8 H
Hgb 12.6
Hct 38.9
Plt Count 240
Sodium 137
Potassium 4.0
Chloride 102
Carbon Dioxide 27
BUN 15
Creatinine 0.7
Glucose 173 H
Calcium 9.0
Vital Signs:
Vital Signs
Temp Pulse Resp BP Pulse Ox
98.3 F 74 20 158/71 96
11/21/24 07:33 11/21/24 07:33 11/21/24 07:33 11/21/24 07:33 11/21/24 07:33
I&O
11/20/24 11/21/24 11/22/24
06:59 06:59 06:59
Intake Total 1320 / 1320
Balance 1320 / 1320
[2024-11-21] MEDS: FOLVITE 1 MG PO (09:09)
[2024-11-21] MEDS: VASOTEC 10 MG PO (09:09)
[2024-11-21] MEDS: HEPARIN 5000 UNITS SC ×2 (09:10→23:04)
[2024-11-21] MEDS: VITAMIN B-12 1000 MCG PO (09:10)
[2024-11-21] MEDS: DELTASONE 40 MG PO (09:10)
[2024-11-21] MEDS: ATIVAN 0.5 MG IV (09:23)
[2024-11-21] MEDS: NSS (PRESERVATIVE FREE) 0.25 ML IV (09:25)
[2024-11-21] MEDS: PT'S OWN INSULIN PUMP - HumaLOG 2.3 UNIT SC (09:30)
[2024-11-21 11:54] LABS: Glucose - Point of Care 286 mg/dl (70-99)
[2024-11-21] MEDS: PT'S OWN INSULIN PUMP - HumaLOG 4.9 UNIT SC (13:16)
[2024-11-21 13:34] LABS: Erythrocyte Sed Rate 7 mm/hour (0-20)
[2024-11-21 13:47] LABS: Creatine Phosphokinase 247 U/L (30-135)
[2024-11-21 15:08] VITALS: BP 140/59
[2024-11-21 15:50] LABS: Glucose - Point of Care 345 mg/dl (70-99)
[2024-11-21] MEDS: PT'S OWN INSULIN PUMP - HumaLOG 14.7 UNIT SC (17:45)
--- NOTE | 2024-11-21 19:33 | W.PN.NEURO.1 ---
Today's Communication / Plan
-
c4-5 cord compression
neurosurgery consult requested
will sign off
Neuro Assessment/Plan
Assessment
4 months progressive weakness/numbness
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 spoke with patient about findings, believe that this explains her progressive weakness/numbness
Plan
neurosurgery consult requested
will sign off
Subjective/Objective
Subjective Data
Date of Service: November 21, 2024
symptoms persist
Objective Data
Vital Signs
Temp Pulse Resp BP Pulse Ox
36.8 C 94 18 140/59 96
11/21/24 15:08 11/21/24 15:08 11/21/24 15:08 11/21/24 15:08 11/21/24 15:08
Lab Results
11/21/24 05:59
11/21/24 05:59
Sodium 137 mmol/L (135-145) 11/21/24 05:59
Potassium 4.0 mmol/L (3.5-5.1) 11/21/24 05:59
BUN 15 mg/dl (7-17) 11/21/24 05:59
Glucose 173 mg/dl (70-99) H 11/21/24 05:59
Calcium 9.0 mg/dl (8.4-10.2) 11/21/24 05:59
Vitamin B12 481 pg/ml (239-931) 11/19/24 14:05
Patient Allergies
tetracycline Allergy (Verified 11/08/24 11:24)
Rash
Physical Exam
-
AAOx4, speech clear
face symmetric, VFF, EOMI
RUE/LE 4/5, LUE/LE 5/5
decreased vibration severe b/l LE, R>L UE
decreased temperature LUE/LE
Decreased pin sensory level ~T2 level bilaterally.
DTR 1+ UE, 2+right knee, 3+ left knee
[2024-11-21 20:53] LABS: Glucose - Point of Care 400 mg/dl (70-99)
[2024-11-21] MEDS: PT'S OWN INSULIN PUMP - HumaLOG 4.7 UNIT SC (20:55)
[2024-11-21 22:03] LABS: Glucose 389 mg/dl (70-99)
[2024-11-21 23:10] VITALS: BP 144/68
[2024-11-22 04:07] LABS: Glucose - Point of Care 269 mg/dl (70-99)
[2024-11-22] MEDS: PT'S OWN INSULIN PUMP - HumaLOG 2.3 UNIT SC ×2 (04:13→08:00)
[2024-11-22] MEDS: VALIUM 2 MG PO (04:13)
[2024-11-22] MEDS: SYNTHROID 137 MCG PO (06:00)
[2024-11-22 07:00] VITALS: BP 141/75
[2024-11-22 07:28] LABS: Glucose - Point of Care 197 mg/dl (70-99)
[2024-11-22] MEDS: ADVAIR HFA 115/21 MCG INHALER 2 PUFF INH (08:12)
--- NOTE | 2024-11-22 08:35 | PN.DE.MGMTRT ---
Insulin Management
- -
11/22/2024: Diabetes Management Consult
64 year old female who presented to the ER after a fall. PMH: Type 1 Diabetes, uses an insulin pump, Medtronic 780G with Humalog insulin and Guardian sensor. A1C 7.9%, Cr 0.7, eGFR >60. Pt routinely sees Endocrine Dr. Bravo for diabetes care.
Pt reports 4 months of progressive numbness/tingling beginning in upper extremities progressing, later developed progressive weakness, worse on the right side and a 9 months h/o of a diffuse rash with a negative biopsy. MRI cervical and thoracic
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
Pt states she was initially dx with T1DM 43 years ago and been using the insulin pump for >30 years.
Pt has been on oral steroids for treatment of rash, contributing to Hyperglycemia. Glucose on admission was 353.
Noted for elevated blood sugars in the evening, likely due to steroid dose adm in the morning, Will adjust pump settings to 20 % for accommodate steroid therapy.
Insulin pump remains in place, current pump settings
basal rate 12am - 6am 1.1
6am - 5pm 1.6 increased to 1.9 while on steroids
5pm - 10pm 1.2 increased to 1.5 while on steroids
10pm - 12am 1.0
ICR 1:15
Correction Factor 1:50
Duration 4hrs
Total 24 hr basal 32.2 units increased to 37 units while on steroids
Diabetes History
- -
Type of Diabetes: 1
Pre-Admission Diabetes Regimen
Lab Results
Hemoglobin A1c 7.9 % (4.0-5.6) H 11/20/24 04:49
Insulin Pump Settings
IP Diabetes Regimen
11/21/24 11/21/24 11/21/24
11:53 15:48 20:52
Glucose
POC Glucose 286 H 345 H 400 H
11/21/24 11/22/24 11/22/24
21:38 04:06 07:27
Glucose 389 H
POC Glucose 269 H 197 H
Meal type: Breakfast
Amount consumed: 100%
Patient Education
[2024-11-22 09:22] LABS: Hematocrit 39.5 % (37.0-47.0); Hemoglobin 12.9 g/dL (12.0-16.0); Mean Corp Hgb Conc. 32.7 g/dL (33.0-37.0); Mean Corpuscular Hgb 28.3 pg (27.0-31.0); Mean Corpuscular Volume 86.6 fL (81.0-99.0); Mean Platelet Volume 10.3 fL (7.4-10.4); Platelet Count 239 10^3/uL (130-400); Red Blood Cell Count 4.56 10^6/uL (4.20-5.40); Red Cell Dist. Width 13.5 % (11.5-14.5); White Blood Cell Count 11.6 10^3/uL (4.8-10.8)
[2024-11-22] MEDS: FOLVITE 1 MG PO (09:33)
[2024-11-22] MEDS: DELTASONE 20 MG PO (09:33)
[2024-11-22] MEDS: HEPARIN 5000 UNITS SC (09:34)
[2024-11-22] MEDS: VASOTEC 10 MG PO (09:34)
[2024-11-22] MEDS: VITAMIN B-12 1000 MCG PO (09:35)
--- NOTE | 2024-11-22 09:51 | CON.NS ---
Chief Complaint
-
Numbness, tingling and right sided weakness with fall
History of Present Illness
64 year old female with PMH hypothyroidism, type 1 diabetes with insulin pump, pernicious anemia, asthma, presented to [facility] with progressive numbness and tingling of her extremities and new onset weakness. She states around the summer
time she developed some balance issues that were subtle. In April she developed a rash on the right foot that then spread throughout her body and has been worked up by outpatient dermatology. It was around this time she also had some changes in her
sensation in the extremities that was also subtle. In July she developed tingling in the fingertips bilaterally. September she ahd numbness in the right foot and hand and began using the phipps to help her walk due to increased balance issues.
October right sided weakness developed which then progressed to the left side. She fell at home due to the weakness and called EMS who brought her to . She denies any pain. Her rash is itchy. She denies any bowel/bladder issues. She has been on
prednisone for the rash. She had a thoracic and cervical MRI and we have been consulted.
Review of Systems
-
12 point review of systems negative unless otherwise noted in HPI
Medication and Allergies
Home Medications
Home Medications
�Medication �Instructions �Recorded
Patient Own Insulin Pump 0 unit SC .VIA HUMOLOG 11/19/24
cyanocobalamin (vitamin B-12) 1,000 mcg IM Q2W 11/19/24
1,000 mcg/mL injection solution
enalapril maleate 10 mg tablet 10 mg PO DAILY 11/19/24
fluticasone 250 mcg-salmeterol 50 1 inh inhalation R BID 11/19/24
mcg/dose blistr powdr for
inhalation (Advair Diskus)
levothyroxine 137 mcg tablet 137 mcg PO DAILY 11/19/24
(Synthroid)
loratadine 10 mg tablet (Claritin) 10 mg PO HS 11/19/24
prednisone 20 mg tablet 40 mg PO .TAPER 11/19/24
Allergies
Allergies
Allergy/AdvReac Type Severity Reaction Status Date / Time
tetracycline Allergy Rash Verified 11/08/24 11:24
Physical Exam
-
Exam:
AAOx3
Cn 2-12 GI
EOMI
speech clear and conversant
widespread red raised rash throughout
skin warm
breathing non labored
sensation intact to crude touch
motor: 5/5 LUE and LLE. right head of operation and logistics and intrinsics 2/5, right wrist extension and flexion 2/5, right HF and KE 3/5
+bucio's bilaterally
no clonus
grossly myelopathic gait
Thoracic MRI:
FINDINGS:
The thoracic cord is normal in size and signal intensity. No abnormal enhancement.
There is disc desiccation at all levels throughout the thoracic spine with mild disc space narrowing.
There is no vertebral compression deformity.
Subtle left paracentral protrusion at T6-7. Slight effacement of subarachnoid space. Minimal impression on the thoracic cord. No significant central canal or foraminal stenosis.
Minor annular bulge at T9-10 and T10-11. Slight effacement of anterior subarachnoid space. No cord compression. No foraminal stenosis.
Minimal annular bulge and mild facet hypertrophy at T10-11 with mild central canal narrowing. No cord compression. No foraminal stenosis.
IMPRESSION:
No thoracic spinal cord signal alteration or abnormal enhancement.
Minor degenerative changes, as described.
Cervical MRI:
FINDINGS:
Straightening of the cervical lordosis. No anterior or posterior listhesis. No compression deformity. No prevertebral soft tissue swelling.
The craniocervical junction is unremarkable.
Moderate to advanced degenerative disc space narrowing at C5-6, C6-7, and C7-T1. Associated endplate osteophyte/disc osteophyte complex formation.
C2-3: No significant osseous central canal or foraminal stenosis.
C3-4: Mild osseous central canal narrowing. No significant foraminal stenosis.
C4-5: Moderate diffuse disc osteophyte complex formation with superimposed broad-based moderate to large posterior central/left paracentral disc protrusion. There is moderate to advanced central canal stenosis and moderate to advanced cord
compression. Within the adjacent cervical CORD, there is subtle increased T2/inversion recovery signal, consistent with spondylotic myelopathy. No abnormal enhancement. No significant foraminal stenosis.
C5-6: Mild to moderate disc osteophyte complex formation. Relatively broad-based, though with a more focal moderate left paracentral component contributing to moderate central canal stenosis and moderate cord compression. No associated abnormal
intramedullary cord signal alteration or enhancement. Mild left foraminal narrowing secondary to endplate osteophyte formation and/uncinate hypertrophy. No significant right foraminal stenosis.
C6-7: Moderate diffuse broad-based disc osteophyte complex with more localized right paracentral broad-based component. Moderate central canal stenosis with mild cord compression. No abnormal intrinsic intramedullary cord signal alteration or
abnormal enhancement. Uncinate hypertrophy contributing to moderate left and mild right foraminal stenosis.
C7-T1: No disc protrusion, central canal, or foraminal stenosis.
IMPRESSION:
No compression deformity. No anterior or posterior listhesis. No compression deformity.
Moderate to advanced degenerative disc space narrowing at C5-6, C6-7, and C7-T1. Associated endplate osteophyte/disc osteophyte complex formation.
C3-4: Mild osseous central canal narrowing.
C4-5: Disc osteophyte complex formation and posterior central/left paracentral protrusion. Moderate to advanced central canal stenosis and moderate to advanced cord compression. Mild cervical cord spondylotic myelopathy. No abnormal enhancement.
C5-6: Disc osteophyte. Moderate central canal stenosis and moderate cord compression. Mild left foraminal narrowing.
C6-7: Disc osteophyte. Moderate central canal stenosis with mild cord compression. Moderate left and mild right foraminal stenosis.
Problems
-
Problem Status Onset Code
Weakness R53.1
Assessment / Plan
-
numbness, tingling, weakness with recent fall -cervical myelopathy due to cervical cord compression most severe at C4/5 and C5/6
--patient will need surgery, likely C4/5 and C5/6 ACDF - to be discussed with Dr. Golden
--patient will need to transfer to [facility] as surgery will need to be done during this hospital stay
--anticipate acute rehab at discharge
--discussed MRI findings and basic surgery plan as well as transfer, patient and agreeable
--will begin transfer process
--discussed with Dr. Golden
[2024-11-22 10:01] LABS: Blood Urea Nitrogen 17 mg/dl (7-17); Calcium 9.4 mg/dl (8.4-10.2); Carbon Dioxide 26 mmol/L (22-30); Chloride 102 mmol/L (98-107); Estimated Creatinine Clearance 84 ml/min; Glucose 133 mg/dl (70-99); Sodium 137 mmol/L (135-145); eGFR > 60.00
[2024-11-22 11:24] LABS: Glucose - Point of Care 137 mg/dl (70-99)
[2024-11-22] MEDS: PT'S OWN INSULIN PUMP - HumaLOG SC (11:46)
--- NOTE | 2024-11-22 13:11 | W.PN.HOSP.TC ---
Today's Communication/Plan
-
dc
Assessment / Plan
Assessment / Plan
64yo F with PMHX of DM type 1 with insulin pump, COPD, HTN. atopic d/o, hypothyroidism came with 4 months of progressive numbness and weakness in b/l UE and LE, MRI showed C4-C5 spinal cord compression with signs of myelopathy. As per neuroSx -
patient for transfer to [facility] for surgical intervention. Accepted for transfer amd medically stable for the transportation.
A/P:
#C4-C5 central cord compression with myelopathy
neurology followed
S/P MRI
NeuroSx for intervention
#DM type 1
cont insulin pump
DM diet
#mild alk.phos elevation
without RUQ pain
follow LFT
#Atopic d/o
#Essential HTN
#Hypothyroidism
#b12 deficiency, pernicious anemia
cont home meds
#Minimal leukocytosis
no suigns of pneumonia on XR
Can be 2/2 Advair
DVT ppx on SCDs
Full code
I have spent at least 58min reviewing chart, test results, communication with consultantants and direct patient care
Anticipated Discharge: Today
Subjective/Interval History
-
Date of Service: November 22, 2024
Objective Data
-
Labs:
Laboratory Results
11/22/24
08:48
WBC 11.6 H
Hgb 12.9
Hct 39.5
Plt Count 239
Sodium 137
Potassium 4.0
Chloride 102
Carbon Dioxide 26
BUN 17
Creatinine 0.7
Glucose 133 H
Calcium 9.4
Vital Signs:
Vital Signs
Temp Pulse Resp BP Pulse Ox
97.9 F 76 16 141/75 96
11/22/24 07:00 11/22/24 08:13 11/22/24 08:13 11/22/24 07:00 11/22/24 09:00
I&O
11/21/24 11/22/24 11/23/24
06:59 06:59 06:59
Intake Total 1320 / 1320 1080 / 1080
Balance 1320 / 1320 1080 / 1080
Review of Systems
-
History Source: Patient
All other systems: Reviewed and negative
Constitutional: Reports Weakness
Physical Exam
-
General: Comfortable
HEENT: Normocephalic
Cardiac: Regular Rhythm
GI: Soft
Genito-urinary: No Costovertebral Tender
Musculoskeletal: No Clubbing, No Cyanosis and No Edema
Skin: Warm
Neuro: Awake, Alert, Oriented, AO x 3 and Other (b/l UE and LE weakness and numbness, both proximally and distally)
Psych: Calm
--- NOTE | 2024-11-22 13:17 | W.DCSUMMARY ---
Discharge Summary
Discharge Data
Date of Admission: 11/19/24
Date of Discharge: 11/22/24
-
Pending Results: No
Hospital Course
64yo F with PMHX of DM type 1 with insulin pump, COPD, HTN. atopic d/o, hypothyroidism came with 4 months of progressive numbness and weakness in b/l UE and LE, MRI showed C4-C5 spinal cord compression with signs of myelopathy. As per neuroSx -
patient for transfer to [facility] for surgical intervention. Accepted for transfer amd medically stable for the transportation.
Patient recently also was started on prednisone for pruritic rash on her extremities. Advised to schedule marketing effectiveness manager for biopsy
I have spent at least 58min reviewing chart, test results, communication with consultantants and direct patient care
patient was managed for:
#C4-C5 central cord compression with myelopathy
#DM type 1
#mild alk.phos elevation
#Atopic d/o
#Essential HTN
#Hypothyroidism
#b12 deficiency, pernicious anemia
#Minimal leukocytosis
#Rash
Discharge Plan
-
Patient Disposition: Other
Discharge Diagnosis/Procedures: spinal stenosis
Diet: Diabetic, Carb Controlled
Referrals:
Milagros Haynes CRNP [Family Provider] -
Prescriptions:
Continued
levothyroxine [Synthroid] 137 mcg Tablet
137 mcg PO DAILY
fluticasone propion-salmeterol [Advair Diskus] 250-50 mcg/dose Blister With Device
1 inh INHALATION R BID
enalapril maleate 10 mg Tablet
10 mg PO DAILY
cyanocobalamin (vitamin B-12) 1,000 mcg/mL Solution
1,000 mcg IM Q2W
loratadine [Claritin] 10 mg Tablet
10 mg PO HS
Patient Own Insulin Pump
0 unit SC .VIA HUMOLOG
prednisone 20 mg tablet
40 mg PO .TAPER
Rx Instructions:
take 60mg daily for 3 days then 40mg daily for 3 days then 20mg daily for 3 days
Discharge Orders:
Discharge Patient (As Directed); Ordered 11/22/24
Ordered By: Alfonso Elliott
Discharge Date and Time
Print Language: POLISH
--- NOTE | 2024-11-22 14:11 | CM ---
Chart reviewed and patient is for transfer from hospital to [facility] [place] [address].
hospital to [facility].
Plan; Transfer to [facility] per physician.
[2024-11-22 15:00] VITALS: BP 147/83
== END 2024-11-22 15:43 | disposition other institution (70) | DRG 552 ==
LOC: 4 WEST ACU 19:24
PROVIDERS: Hospitalist; Registered Nurse; ADMITTING PHYSICIAN Internal Medicine; ATTENDING PHYSICIAN Internal Medicine; CONSULT PHYSICIAN Neurological Surgery; CONSULT PHYSICIAN Psychiatry & Neurology Clinical Neurophysiology; EMERGENCY PHYSICIAN Emergency Medicine; FAMILY PHYSICIAN Nurse Practitioner
DX: M50.021 Cervical disc disorder at C4-C5 level with myelopathy (principal); M48.02 Spinal stenosis, cervical region; E10.65 Type 1 diabetes mellitus with hyperglycemia; I10 Essential (primary) hypertension; E03.9 Hypothyroidism, unspecified; D51.0 Vitamin B12 deficiency anemia due to intrinsic factor deficiency; J44.89 Other specified chronic obstructive pulmonary disease; Z79.4 Long term (current) use of insulin
CPT/HCPCS: 70450; 72156; 72157; 80048; 80053; 82550; 82607; 82746; 82947; 82962; 83036; 84443; 85025; 85027; 85652; 86041; 86140; 94640; 96360; 97162; 97166; 99284; A9575

== ENCOUNTER → 2024-12-03 13:23 | Outpatient (REF) | payer MEDICARE, OTHER, SELFPAY | LOC: RAD 13:23 | PROVIDERS: ATTENDING PHYSICIAN Nurse Practitioner | DX: M71.072 Abscess of bursa, left ankle and foot (principal); I82.812 Embolism and thrombosis of superficial veins of left lower extremity | CPT/HCPCS: 93971 ==

== ENCOUNTER → 2025-06-10 11:50 | Outpatient (REF) | payer MEDICARE, OTHER, SELFPAY | LOC: WDC 11:50 | PROVIDERS: ATTENDING PHYSICIAN Obstetrics & Gynecology Gynecology; FAMILY PHYSICIAN Internal Medicine | DX: Z12.31 Encounter for screening mammogram for malignant neoplasm of breast (principal) | CPT/HCPCS: 77063; 77067 ==

== ENCOUNTER → 2025-06-16 08:55 | Outpatient (REF) | payer MEDICARE, OTHER, SELFPAY | LOC: WDC 08:55 | PROVIDERS: ATTENDING PHYSICIAN Obstetrics & Gynecology Gynecology; FAMILY PHYSICIAN Internal Medicine | DX: R92.8 Other abnormal and inconclusive findings on diagnostic imaging of breast (principal) | CPT/HCPCS: 76642 ==